=== PATIENT | female | born 1975 | race Asian ===

== ENCOUNTER → 2016-07-26 | Outpatient (CLI) | payer BC ==
[~2016-07-26] MED LIST: CITA10TA70 PO; IBP600T1 PO; KETO10TA PO; LORA1TAB PO; MECL25TA3 PO; METO-333 PO; OXYC1TAB12 PO
--- NOTE | 2016-07-30 19:20 | Diagnostic Imaging Report ---
INDICATION: Digital mammogram bilateral screening. This is the patient's baseline study. At this time, there are no current complaints. The current study was also evaluated with a Computer Aided Detection (CAD) system. FINDINGS: The fibroglandular tissue in both breasts is dense. This does limit the sensitivity of this exam. On the craniocaudad view of the right breast approximately 7 cm deep to the nipple, there is an 8 mm area of increased density. There is no corresponding abnormality identified with certainty on the MLO view and this density may merely be secondary to superimposition of the dense fibroglandular tissue. Even so, the possibility that there is an underlying lesion in this area should still be considered. I would recommend that a compression view of this area be obtained in the CC projection as well as rolled views. A true lateral view should also be performed. If this density persists on the additional mammographic views, then ultrasound should be performed as well. The left breast is unremarkable. IMPRESSION: Additional mammographic views of the right breast would be recommended for further study. Ultrasound may also be necessary. ACR BI-RADS Category 0: Incomplete. (Needs additional imaging evaluation). Result letter will be mailed to the patient. Note: At least 10% of breast cancer is not imaged by mammography. Dictated by: Dictated on workstation # [id number]
== END ==
LOC: RAD 11:23
PROVIDERS: ATTEND Obstetrics & Gynecology
DX: Z12.31 Encounter for screening mammogram for malignant neoplasm of breast (principal)
CPT/HCPCS: 77067

== ENCOUNTER → 2016-08-14 | Outpatient (CLI) | payer BC ==
--- NOTE | 2016-08-14 18:41 | Diagnostic Imaging Report ---
Right breast diagnostic mammogram. The current study was also evaluated with a Computer Aided Detection (CAD) system. INDICATION: Asymmetry along the posterior central aspect of the right breast. FINDINGS: Focal compression view demonstrates prominent asymmetry along the posterior central aspect of the right CC projection with less prominent asymmetry also seen on the rolled views. IMPRESSION: Additional views are suggestive of summation artifact of parenchyma. Ultrasound evaluation pending. ACR BI-RADS Category 0: Incomplete. (Needs additional imaging evaluation). Result letter will be mailed to the patient. Note: At least 10% of breast cancer is not imaged by mammography. Dictated by: Dictated on workstation # [id number]
--- NOTE | 2016-08-14 18:43 | Diagnostic Imaging Report ---
EXAMINATION: Right breast ultrasound. INDICATION: Asymmetry seen on mammography in the posterior aspect of the right CC projection. FINDINGS: The four quadrants and retroareolar region of the right breast demonstrate no underlying abnormality. IMPRESSION: Negative study. The asymmetry seen on mammography is probably summation artifact of parenchyma. Annual screening mammograms recommended. ACR BI-RADS Category 1: Negative. Result letter will be mailed to the patient. Note: At least 10% of breast cancer is not imaged by mammography. Dictated by: Dictated on workstation # [id number]
== END ==
LOC: RAD 13:50
PROVIDERS: ATTEND Obstetrics & Gynecology
DX: R92.8 Other abnormal and inconclusive findings on diagnostic imaging of breast (principal)
CPT/HCPCS: 76641

== ENCOUNTER → 2017-08-11 | Outpatient (CLI) | payer BC ==
--- NOTE | 2017-08-11 16:17 | Diagnostic Imaging Report ---
INDICATION: Routine screening. COMPARISON: 07/26/2016. TECHNIQUE: Screening digital mammography was performed bilaterally with a Computer Aided Detection (CAD) system. 3D tomographic images were obtained and reviewed. FINDINGS: Both breasts are heterogeneously dense, limiting the sensitivity of mammography. No dominant mass or malignant appearing microcalcifications are seen. The axillae are unremarkable. IMPRESSION: No mammographic features suspicious for malignancy are identified. ACR BI-RADS Category 1: Negative. Result letter will be mailed to the patient. Note: At least 10% of breast cancer is not imaged by mammography. Dictated by: Dictated on workstation # [id number]
== END ==
LOC: RAD 14:54
PROVIDERS: ATTEND Obstetrics & Gynecology
DX: Z12.31 Encounter for screening mammogram for malignant neoplasm of breast (principal)
CPT/HCPCS: 77067